=== PATIENT | male | born 1975 | race American Indian/Alaskan Native ===

== ENCOUNTER 2019-05-22 09:30 | Emergency (ER) | payer MEDICAID ==
[2019-05-22 14:22] LABS: BUN/Creatinine Ratio 17; Blood Urea Nitrogen 10 mg/dL (9-20); Calcium 9.3 mg/dL (8.4-10.2); Hemolysis Index 8
[2019-05-22 14:23] LABS: Alanine Aminotransferase 34 units/L (7-56); Albumin 4.1 g/dL (3.9-5); Basophils # (Auto) 0.2 K/mm3 (0.0-0.1); Basophils % (Auto) 1.6 % (0.0-1.8); Eosinophils # (Auto) 0.3 K/mm3 (0.0-0.4); Eosinophils % (Auto) 2.9 % (0.0-4.3); Hematocrit 47.5 % (35.5-45.6); Hemoglobin 15.8 gm/dl (11.8-15.2); Lymphocytes % (Auto) 20.7 % (13.4-35.0); Mean Corpuscular HGB Conc 33 % (32-34); Mean Corpuscular Volume 94 fl (84-94); Monocytes # (Auto) 0.5 K/mm3 (0.0-0.8); Monocytes % (Auto) 5.3 % (0.0-7.3); Red Blood Count 5.07 M/mm3 (3.65-5.03); Red Cell Distribution Width 13.5 % (13.2-15.2)
[2019-05-22 14:24] LABS: Bilirubin,Direct < 0.2 mg/dL (0-0.2); Creatine Kinase MB < 1.0 ng/mL (0.0-4.0)
[2019-05-22 14:32] LABS: Platelet Count 245 K/mm3 (140-440)
[2019-05-22 14:35] LABS: INR 1.07 (0.87-1.13)
[2019-05-22 14:36] LABS: Partial Thromboplastin Time 25.5 Sec. (24.2-36.6); Thrombin Time 16.9 Sec. (15.1-19.6)
--- NOTE | 2019-05-22 14:49 | Cat Scan Report ---
CT head/brain wo con INDICATION / CLINICAL INFORMATION: 43 years Male; Stroke symptoms. TECHNIQUE: Routine CT head without contrast. All CT scans at this location are performed using CT dos e reduction for ALARA by means of automated exposure control. COMPARISON: None. FINDINGS: BRAIN / INTRACRANIAL CONTENTS: Bifrontal craniotomy along with cranioplasty is seen. Shrapnel are see n in the calvarium. Encephalomalacia is seen in the frontal lobes bilaterally and in the left basal ganglia with compensa tory enlargement of both frontal horns more on the left side and third ventricle. Extensive periventr icular low density areas seen on the left lateral ventricle. I do not see hemorrhage, space taking lesion or subdural hematoma. I do not see CT findings to sugges t acute territorial infarction. CRANIOCERVICAL JUNCTION: No significant abnormality. ORBITS: No significant abnormality of visualized orbits. SINUSES / MASTOIDS: Mucosal thickening is seen in the left anterior ethmoid air cells and left fronta l sinus inferiorly. ADDITIONAL FINDINGS: None. IMPRESSION: Bifrontal craniotomy; encephalomalacia in both frontal lobes; I do not see CT findings to suggest ac mi parenchymal lesion Shrapnel in the calvarium Signer Name: Geoffrey Copeland MD Signed: 05/22/2019 2:44 PM Workstation Name: [id number]
[2019-05-22 16:57] VITALS: BP 139/83
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
--- NOTE | 2019-05-22 17:43 | XRay Report ---
Right femur-4 views Right leg-4 views INDICATION: pain right leg. Acute generalized right lower extremity pain COMPARISON: None. IMPRESSION: Mild circumferential soft tissue swelling about the right lower extremity but no acute f racture. Normal alignment. 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 Signer Name: Zion Saavedra MD Signed: 05/22/2019 5:39 PM Workstation Name: [id number]
== END 2019-05-22 19:00 | disposition home or self-care (01) ==
LOC: ED 09:30
DX: M62.81 Muscle weakness (generalized) (principal); I10 Essential (primary) hypertension
CPT/HCPCS: 36415; 70450; 80048; 80076; 80320; 82550; 82553; 83735; 84484; 85025; 85610; 85670; 85730; 93005; 93010; G0480

== ENCOUNTER 2019-08-04 23:22 | Emergency (ER) | payer MEDICAID ==
[2019-08-04] MEDS ORDERED: levETIRAcetam 1000 MG/NS 0.75% 1,000 MG/100 ML BAG IV ONE (23:53)
[2019-08-04] MEDS ORDERED: THIAMINE 100 MG, FOLIC ACID 1 MG, MULTIPLE VITAMIN INJ, ADULT 10 ML in SODIUM CHLORIDE ... IV ONE (23:53)
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
[2019-08-05 00:59] LABS: Hematocrit 43.4 % (35.5-45.6); Hemoglobin 14.4 gm/dl (11.8-15.2); Mean Corpuscular HGB Conc 33 % (32-34); Mean Corpuscular Volume 94 fl (84-94); Red Blood Count 4.63 M/mm3 (3.65-5.03); Red Cell Distribution Width 13.1 % (13.2-15.2)
[2019-08-05 01:18] LABS: BUN/Creatinine Ratio 13; Blood Urea Nitrogen 8 mg/dL (9-20); Calcium 9.3 mg/dL (8.4-10.2); Hemolysis Index 11
[2019-08-05 02:09] LABS: Platelet Count 254 K/mm3 (140-440)
[2019-08-05 09:13] VITALS: BP 124/84
== END 2019-08-05 09:13 | disposition home or self-care (01) ==
LOC: ED 23:22
DX: R56.9 Unspecified convulsions (principal); F10.129 Alcohol abuse with intoxication, unspecified; I10 Essential (primary) hypertension
CPT/HCPCS: 36415; 80048; 82962; 85027; 96365; 96366; 96367; 99284; J1953; J3411; J7030; 80320; G0480